=== PATIENT | male | born 1975 | race Caucasian/White ===

== ENCOUNTER 2018-08-02 16:32 | Emergency (ER) | payer MEDICAID ==
[~2018-08-02] VITALS: Ht 185.4 cm; Wt 97.5 kg
[2018-08-02 17:01] VITALS: BP 139/98
[2018-08-02] MEDS ORDERED: HYDROcodone-ACET 10/325MG TAB PO ONE (19:15)
[2018-08-02] MEDS ORDERED: cefTRIAXone SOD 1,000 MG VL IM ONE (19:15)
[2018-08-02] MEDS ORDERED: LIDOCAINE 1% (LOCAL ANESTH.) PF 5ml SDV ONE (19:50)
[2018-08-02] MEDS ORDERED: LIDOCAINE 1% HCL (LOCAL ANESTH.) INJ 20ML MDV IJ ONE (20:00)
== END 2018-08-02 20:07 | disposition home or self-care (01) ==
LOC: ER 16:38
DX: S40.862A Insect bite (nonvenomous) of left upper arm, initial encounter (principal); W57.XXXA Bitten or stung by nonvenomous insect and other nonvenomous arthropods, initial encounter; Y93.89 Activity, other specified; Y99.8 Other external cause status; Y92.89 Other specified places as the place of occurrence of the external cause
CPT/HCPCS: 96372; 99283; J0696

== ENCOUNTER 2023-04-30 22:33 | Emergency (ER) | payer SELFPAY ==
[~2023-04-30] VITALS: Ht 185.4 cm; Wt 107.0 kg
[2023-04-30 22:53] VITALS: BP 183/81
[2023-04-30] MEDS ORDERED: cloNIDine HCL 0.1 MG TAB PO ONE (23:00)
[2023-04-30 23:03] LABS: Basophils # (auto) 0.1 10 ^3/uL (0-0.2); Basophils % (auto) 0.9 % (0.0-2.0); Eosinophils # (auto) 0.2 10 ^3/uL (0-0.8); Eosinophils % (auto) 3.1 % (0.0-7.0); Hematocrit 54.1 % (41.0-53.0); Hemoglobin 18.7 g/dL (13.5-17.5); Lymphocytes # (auto) 2.4 10 ^3/uL (0.4-5.4); Lymphocytes % (auto) 31.2 % (10.0-50.0); Mean Corpuscular Hemoglobin 30.5 pg (28.0-32.0); Mean Corpuscular Hgb Conc. 34.5 g/dL (32.0-36.0); Mean Corpuscular Volume 88.5 fL (80.0-100.0); Monocytes # (auto) 0.9 10 ^3/uL (0-1.3); Neutrophils # (auto) 4.2 10 ^3/uL (1.6-8.6); Neutrophils % (auto) 53.8 % (37.0-80.0); Nucleated Red Blood Cells % 0.2 %; Red Blood Cells 6.11 10^6/uL (4.5-5.90); Red Cell Distribution Width 14.1 % (11.8-14.3); White Blood Cell 7.8 10^3/uL (4.4-10.8)
[2023-04-30] MEDS ORDERED: cloNIDine HCL 0.1 MG TAB ONE (23:10)
[2023-04-30 23:27] LABS: Albumin 3.6 g/dL (3.4-5.0); BUN/Creatinine Ratio 12.4 (10.0-20.0); Calcium 9.1 mg/dL (8.5-10.1); Magnesium 2.1 mg/dL (1.6-2.6); Potassium 3.7 mmol/L (3.5-5.1)
[2023-04-30 23:30] LABS: Bilirubin, Total 0.9 mg/dL (0.2-1.0); Total Protein 7.6 g/dL (6.4-8.2)
[2023-04-30 23:48] LABS: Urine Bacteria NONE SEEN /hpf (None Seen); Urine Blood Negative /uL (Negative); Urine WBC <1 /hpf (0 - 3)
[2023-04-30 23:53] LABS: INR 1.18 (0.9-1.15); Partial Thromboplastin Time 24.7 sec (24.6-33.4)
[2023-05-01] MEDS ORDERED: PROCHLORPERAZINE MALEATE 10 MG TAB PO ONE (02:00)
[2023-05-01] MEDS ORDERED: HYDROcodone-ACET 5/325MG TAB PO ONE (02:00)
[2023-05-01] MEDS ORDERED: ZOFR4T PO (02:03)
[2023-05-01] MEDS ORDERED: IBU600T PO (02:03)
== END 2023-05-01 03:30 | disposition home or self-care (01) ==
LOC: ER 22:33
DX: R07.89 Other chest pain (principal); I10 Essential (primary) hypertension; R51.9 Headache, unspecified; G93.0 Cerebral cysts
CPT/HCPCS: 36415; 70450; 71045; 80053; 81001; 83735; 83880; 84484; 85025; 85610; 85730; 93005; 99285; Q0164

== ENCOUNTER 2025-01-13 21:48 | Emergency (ER) | payer BC, OTHER ==
[~2025-01-13] VITALS: Ht 185.4 cm; Wt 109.1 kg
[~2025-01-13 21:48] MED LIST: IBU600T PO; ZOFR4T PO
[2025-01-13 21:50] VITALS: BP 187/112; RESP 22; O2SAT 100
[2025-01-13] MEDS ORDERED: NITROGLYCERIN 2% OINT 1GM PKG TD ONE (22:00)
[2025-01-13] MEDS ORDERED: ASPirin 325 MG TAB PO ONE (22:00)
[2025-01-13 22:20] LABS: Eosinophils # (auto) 0.2 10 ^3/uL (0-0.8); Lymphocytes # (auto) 1.7 10 ^3/uL (0.4-5.4); Mean Corpuscular Hemoglobin 29.7 pg (28.0-32.0); Mean Corpuscular Hgb Conc. 33.8 g/dL (32.0-36.0); Monocytes # (auto) 0.8 10 ^3/uL (0-1.3); Nucleated Red Blood Cells % 0.2 %
[2025-01-13 22:22] LABS: Basophils # (auto) 0.1 10 ^3/uL (0-0.2); Basophils % (auto) 0.7 % (0.0-2.0); Eosinophils % (auto) 2.5 % (0.0-7.0); Hemoglobin 19.2 g/dL (13.5-17.5); Lymphocytes % (auto) 19.3 % (10.0-50.0); Monocytes % (auto) 9.4 % (0.0-12.0); Neutrophils # (auto) 5.9 10 ^3/uL (1.6-8.6); Neutrophils % (auto) 68.1 % (37.0-80.0); Platelet Count (auto) 183 10^3/uL (140-450); Red Blood Cells 6.48 10^6/uL (4.5-5.90); Red Cell Distribution Width 14.7 % (11.8-14.3); White Blood Cell 8.7 10^3/uL (4.4-10.8)
--- NOTE | 2025-01-13 22:36 | DVH ---
CHEST RADIOGRAPH Indication: cp Technique: Single frontal view of the chest was obtained Comparison: XY CHEST PORTABLE on DOS: 04/30/23 FINDINGS: Lines and Tubes: None Lungs: Clear Pleura: No effusion. No pneumothorax. Cardiomediastinal contours: Unremarkable Bones: Unremarkable IMPRESSION: Clear lungs.
[2025-01-13 22:44] VITALS: PULSE 83
--- NOTE | 2025-01-13 22:44 | ED.PDOC ---
History of Present Illness HPI Comments 49 y/o M with history of HLD, HTN and right-foot surgery brought in by family, referred by [facility] for evaluation of chest pain. Patient reports symptoms started 4 days ago and have been progressively worsening. He reports retrosternal pressure-like chest pain, associated with shortness a breath, generalized weakness and headache. At [facility] he had a preliminary workup which showed an elevated D-dimer, and was told to come to the ER for further workup. He denies any fever, cough, nausea, vomiting, diaphoresis, edema or extremity pain. Chief Complaint: Chest Pain Time Seen by MD: 21:55 Primary Care Provider: KNOWN Reviewed Notes: Nurses Notes, Medications, Allergies Allergies: Coded Allergies: NO KNOWN ALLERGIES (Unverified , 08/02/18) Home Meds Active Scripts Ondansetron Odt 4MG Tab (ZOFRAN PO) 4 Mg Tb, 1 TAB PO Q8HR, #20 TAB ODT TAB-DISSOLVE IN MOUTH, THEN SWALLOW as needed for nausea/vomiting Prov:LEYVANORALDA Q CLOCK REPAIR TECHNICIAN 05/01/23 Ibuprofen Micronized (MOTRIN TABLET) 600 Mg Tb, 6001 TAB PO TID PRN, #20 TAB *as needed for pain Prov:LEYVA,NORALDA Q CLOCK REPAIR TECHNICIAN 05/01/23 Information Source: Patient Mode of Arrival: Ambulatory Severity: Moderate Timing: Days Duration: Since onset Prehospital treatment: NTG Past Medical History PAST MEDICAL HISTORY: High Lipids, HTN Surgical History (Other): right-foot surgery Family History Family History: Unknown Social History Smoker: Non-Smoker Alcohol: Denies ETOH Use Drugs: Denies Drug Use Lives In: Home All Other Systems: Reviewed and Negative (Comprehensive systems review obtained and negative except for what is stated in the HPI.) Physical Exam General Appearance: Mild Distress HEENT: Other (Pupils and face symmetric, moist mucous membranes.) Neck: Full Range of Motion, Normal Inspection Respiratory: Lungs Clear, No Accessory Muscle Use, No Respiratory Distress, Normal Breath Sounds Cardiovascular: No Edema, No JVD, Regular Rate/Rhythm Breast Exam: Deferred Gastrointestinal: Non Tender, Soft Genitalia: Deferred Pelvic: Deferred Rectal: Deferred Extremities: No calf tenderness, Normal inspection, Normal range of motion, Non-tender, No pedal edema Neurologic: Alert (Oriented x4), Normal Affect, Normal Mood, Other (Ambulatory without difficulty. No gross focal deficit.) Cerebellar Function: NOT DONE Reflexes: NOT DONE Skin: Dry, Normal Color, Warm Lymphatic: NOT DONE Was a procedure done? Was a procedure done?: No EKG EKG : Pulse Rate (adult): 83 Comments Sinus rhythm, rate 83, normal intervals, normal axis, normal QRS, inferior T- wave inversion with other nonspecific T changes. Differential Dx Considerations may include: ACS, IL, PE, chest wall pain, infection such as bronchitis or pneumonia, arrhythmia, anxiety, among others X-Ray, Labs, Meds, VS Vital Signs Date Time Temp Pulse Resp B/P (MAP) Pulse Ox O2 Delivery O2 Flow Rate FiO2 01/13/25 22:44 83 01/13/25 21:55 83 01/13/25 21:50 97.9 87 22 187/112 (137) 100 Lab Test 01/14/25 00:30 01/13/25 22:59 01/13/25 21:59 01/13/25 21:54 Range/Units Troponin I High Sensitivity 10 9 8 </=54 ng/L Sodium Level 140 136-145 mmol/L Potassium Level 4.3 3.5-5.1 mmol/L Chloride Level 104 98-107 mmol/L Carbon Dioxide Level 25 20-31 mmol/L Anion Gap 11 5-15 Blood Urea Nitrogen 21 9-23 mg/dL Creatinine 1.13 0.700-1.30 mg/dL Glomerular Filtration Rate Calc 79 >90 mL/min BUN/Creatinine Ratio 18.6 10.0-20.0 Serum Glucose 110 H 74-106 mg/dL Calcium Level 10.3 8.7-10.4 mg/dL Total Bilirubin 0.9 0.2-1.0 mg/dL Aspartate Amino Transferase (AST) 52 H 13-40 U/L Alanine Aminotransferase (ALT) 107 H 7-40 U/L Alkaline Phosphatase 71 46-116 U/L Total Protein 7.4 5.7-8.2 g/dL Albumin 5.0 H 3.2-4.8 g/dL D-Dimer, Quantitative 0.84 H 0.0-0.49 mg/L FEU White Blood Count 8.7 4.4-10.8 10^3/uL Red Blood Count 6.48 H 4.5-5.90 10^6/uL Hemoglobin 19.2 H 13.5-17.5 g/dL Hematocrit 57.0 H 41.0-53.0 % Mean Corpuscular Volume 88.0 80.0-100.0 fL Mean Corpuscular Hemoglobin 29.7 28.0-32.0 pg Mean Corpuscular Hemoglobin Concent 33.8 32.0-36.0 g/dL Red Cell Distribution Width 14.7 H 11.8-14.3 % Platelet Count 183 140-450 10^3/uL Mean Platelet Volume 8.8 6.9-10.8 fL Neutrophils (%) (Auto) 68.1 37.0-80.0 % Lymphocytes (%) (Auto) 19.3 10.0-50.0 % Monocytes (%) (Auto) 9.4 0.0-12.0 % Eosinophils (%) (Auto) 2.5 0.0-7.0 % Basophils (%) (Auto) 0.7 0.0-2.0 % Neutrophils # (Auto) 5.9 1.6-8.6 10 ^3/uL Lymphocytes # (Auto) 1.7 0.4-5.4 10 ^3/uL Monocytes # (Auto) 0.8 0-1.3 10 ^3/uL Eosinophils # (Auto) 0.2 0-0.8 10 ^3/uL Basophils # (Auto) 0.1 0-0.2 10 ^3/uL Nucleated Red Blood Cells 0.2 % B-Type Natriuretic Peptide 3.88 0-100 pg/mL [place] [id number] Ph: [phone] DIAGNOSTIC IMAGING Diagnostic Imaging Report : [id number] Signed PATIENT: DESTINEE LEBLNAC ACCT: [id number] UNIT: [id number] : 1975 LOC: ER ROOM / BED: / AGE / SEX: 49 / M ADM STATUS: REG ER SERVICE 57 ORDERING PHYSICIAN: KATHERINE CARRILLO MD PROCEDURE(s): CXRP - CHEST PORTABLE REASON: cp ORDER NUMBER(s): [id number], ACCESSION NUMBER(s): [id number] CHEST RADIOGRAPH Indication: cp Technique: Single frontal view of the chest was obtained Comparison: XY CHEST PORTABLE on DOS: 04/30/23 FINDINGS: Lines and Tubes: None Lungs: Clear Pleura: No effusion. No pneumothorax. Cardiomediastinal contours: Unremarkable Bones: Unremarkable IMPRESSION: Clear lungs. ATED BY: EARNESTINE VELA DO DICTATED DATE/TIME: 01/13/252233 SIGNED BY: EARNESTINE VELA DO SIGNED DATE/TIME: 01/13/252233 CC: PROCEDURE(s): CTACH - CT ANGIO CHEST CONTRAST REASON: cp hi dimer r/o pe ORDER NUMBER(s): [id number], ACCESSION NUMBER(s): [id number] CTA Chest with intravenous contrast INDICATION: cp hi dimer r/o pe COMPARISON: None TECHNIQUE: Multidetector spiral CTA of the chest was performed of the chest with intravenous contrast. PULMONARY ANGIOGRAPHY PROTOCOL was utilized using a bolus- tracking technique centered on the main pulmonary artery. Axial, coronal and sagittal multiplanar and MIP reformats were performed. Radiation Dose : 1. Chest: CTDI volume is 26.31 mGy. Dose-length product is 1105.37 mGy*cm The dose indicators for CT are the volume Computed Tomography (CT) Dose Index (CTDIvol) and the Dose Length Product (DLP), and are measured in units of mGy and mGy-cm, respectively. These indicators are not patient dose, but values generated from the CT scanner acquisition factors. The report includes radiation exposure data for exposures received during this examination. Findings: Pulmonary artery: No evidence of pulmonary embolism. Lower neck: Unremarkable. Lungs / Pleura: No focal consolidation, pleural effusion or pneumothorax. Heart/Vascular Structures: Normal heart size. No pericardial effusion. Normal thoracic aorta. Lymph Nodes: No adenopathy Musculoskeletal: No acute osseous abnormality. Soft tissues: Unremarkable. Visualized Upper abdomen: Unremarkable. IMPRESSION: No evidence of pulmonary embolism or other abnormality. X-Ray, Labs, Meds, VS Comment 49-year-old male with a history of hypertension and hyperlipidemia referred by [facility] for evaluation of chest pain and elevated D-dimer Vitals remarkable for blood pressure 187/112, respiratory rate 22 Exam unremarkable Rhythm strip independently interpreted by me: Sinus rhythm, rate 83, no ectopy. Chest x-ray unremarkable CT angio chest IMPRESSION: No evidence of pulmonary embolism or other abnormality. CBC remarkable for hemoglobin 19.2, hematocrit 57, metabolic panel remarkable for AST 52, ALT 107, 2 serial troponins negative, BNP normal, D-dimer elevated at 0.84 Patient treated with the following in the ED: Aspirin 325 mg p.o., nitro bid 1/2 inch applied to chest wall On re-evaluation patient states he is still having pain due to coughing, however pain is not as severe as it was initially. Plan was to contact [facility] for transfer or hospitalization and Cardiology evaluation. Patient stated he was extremely tired and did not want to be hospitalized or wait for a discussion with [facility]. I advised the patient of the risks of leaving prior to completion of evaluation and treatment including persistent or worsening symptoms, permanent disability or . He expressed understanding and insisted on leaving against medical advice. He was alert, oriented x4 and capable of making informed decisions at the time he signed out against medical advice. He was advised to contact [facility] in the morning for cardiology follow-up and to return to ER for persistent or worsening symptoms. Time of 1ST Reevaluation: 22:25 Reevaluation 1ST: Unchanged Patient Education/Counseling: Diagnosis, Treatment Family Education/Counseling: No Family Present Departure 1 Departure Time of Disposition: 01:29 Impression: Primary Impression: Chest pain with high risk for cardiac etiology Disposition: 07 LEFT AGAINST MEDICAL ADVICE Condition: Fair Additional Instructions: Your blood tests were unremarkable except for the screening test for blood clots, which was abnormal. Your chest x-ray was normal. Your chest CT showed no blood clots in your lungs. You are leaving against medical advice. Follow- up with [facility] as soon as possible for referral to a power nut runner operator for further evaluation of your chest pain. Discharged With: Self Critical Care Note Critical Care Time?: No Stability Stability form required: No Heart Score Heart Score: Heart Score Response (Comments) Value History Highly Suspicious [address]-Deviation 2 Age 45-64 1 Risk Factors 1 or 2 risk factors 1 Troponin Normal limit 0 Total 6 I personally scribed for KATHERINE CARRILLO MD ([email or web address]) on 01/13/25 at 22:44. Electronically submitted by Cory Anna ([email or web address]). I personally scribed for KATHERINE CARRILLO MD ([email or web address]) on 01/13/25 at 23:25. Electronically submitted by Cory Anna [email or web address]). KATHERINE CARRILLO MD Jan 13, 2025 22:44
[2025-01-13 23:25] LABS: Anion Gap 11 (5-15)
[2025-01-13 23:39] LABS: Alkaline Phosphatase 71 U/L (46-116); Aspartate Aminotransferase 52 U/L (13-40); Carbon Dioxide 25 mmol/L (20-31); Chloride 104 mmol/L (98-107); Glucose 110 mg/dL (74-106); Sodium 140 mmol/L (136-145)
[2025-01-13 23:40] LABS: Alanine Aminotransferase 107 U/L (7-40); BUN/Creatinine Ratio 18.6 (10.0-20.0); Bilirubin, Total 0.9 mg/dL (0.2-1.0); Blood Urea Nitrogen 21 mg/dL (9-23); Calcium 10.3 mg/dL (8.7-10.4); Potassium 4.3 mmol/L (3.5-5.1); Total Protein 7.4 g/dL (5.7-8.2)
--- NOTE | 2025-01-13 23:54 | ECG ---
[facility] Test Date: 2025-01-13 Test Time: 21:55:27 Pat Name: DESTINEE LEBLANC Department: ED Room: Gender: M Evs Manager: : 1975 Requested By: KATHERINE KWOK Order Number: [id number] Reading MD: Measurements Intervals [place] Rate: 83 P: -17 DC: 170 QRS: 13 QRSD: 105 T: -77 QT: 339 QTc: 399 Interpretive Statements Sinus rhythm Abnormal T, consider ischemia, inferior leads Please click the below link to view image of tracing.
[2025-01-14] MEDS ORDERED: IOHEXOL 350 MG/ML 100ML IJ ONE (00:18)
--- NOTE | 2025-01-14 01:11 | DVH ---
CTA Chest with intravenous contrast INDICATION: cp hi dimer r/o pe COMPARISON: None TECHNIQUE: Multidetector spiral CTA of the chest was performed of the chest with intravenous contrast . PULMONARY ANGIOGRAPHY PROTOCOL was utilized using a bolus-tracking technique centered on the main p ulmonary artery. Axial, coronal and sagittal multiplanar and MIP reformats were performed. Radiation Dose : 1. Chest: CTDI volume is 26.31 mGy. Dose-length product is 1105.37 mGy*cm The dose indicators for CT are the volume Computed Tomography (CT) Dose Index (CTDIvol) and the Dose Length Product (DLP), and are measured in units of mGy and mGy-cm, respectively. These indicators are not patient dose, but values generated from the CT scanner acquisition factors. The report includes radiation exposure data for exposures received during this examination. Findings: Pulmonary artery: No evidence of pulmonary embolism. Lower neck: Unremarkable. Lungs / Pleura: No focal consolidation, pleural effusion or pneumothorax. Heart/Vascular Structures: Normal heart size. No pericardial effusion. Normal thoracic aorta. Lymph Nodes: No adenopathy Musculoskeletal: No acute osseous abnormality. Soft tissues: Unremarkable. Visualized Upper abdomen: Unremarkable. IMPRESSION: No evidence of pulmonary embolism or other abnormality.
== END 2025-01-14 02:11 | disposition left against medical advice (07) ==
LOC: ER 21:48
DX: R07.89 Other chest pain (principal); E78.5 Hyperlipidemia, unspecified; I10 Essential (primary) hypertension; Z98.890 Other specified postprocedural states
CPT/HCPCS: 36415; 71045; 71275; 80053; 83880; 84484; 85025; 85379; 93005